=== PATIENT | male | born 1955 | race Caucasian/White ===

== ENCOUNTER 2018-11-02 09:18 | Inpatient (IN) | payer MEDICARE, OTHER ==
[~2018-11-02] VITALS: Ht 167.6 cm; Wt 61.2 kg
[2018-11-02] MEDS ORDERED: METOCLOPRAMIDE HCL 10 MG/2 ML VIAL IV ONE (09:30)
[2018-11-02] MEDS ORDERED: KETOROLAC TROMETHAMINE 15 MG INJ IV ONE (09:30)
[2018-11-02] MEDS ORDERED: IV NORMAL SALINE 1000 ML BAG IV ONE ×2 (09:30→11:45)
[2018-11-02] MEDS ORDERED: SWABABLE VALVE TRANSFER SET EA MC ONE (09:39)
[2018-11-02] MEDS ORDERED: IOHEXOL 300MG/ML 100 ML INFUS..BTL ONE (09:39)
[2018-11-02] MEDS ORDERED: IV NORMAL SALINE 250 ML IV ONE (09:39)
[2018-11-02 09:50] LABS: BASOPHILS # (AUTO) 0.1 K/uL (0.0-8.0); BASOPHILS % (AUTO) 0.8 % (0.0-2.0); EOSINOPHILS % (AUTO) 0.1 % (0.0-7.0); HEMATOCRIT 42.5 % (36.7-47.1); HEMOGLOBIN 14.3 g/dL (12.5-16.3); LYMPHOCYTES % (AUTO) 12.1 % (20.5-51.5); MEAN CORPUSCULAR HGB CONC 34 g/dL (32.5-36.3); MEAN CORPUSCULAR VOLUME 89.2 fL (73.0-96.2); MONOCYTES # (AUTO) 0.3 K/uL (2.0-10.0); MONOCYTES % (AUTO) 3.9 % (0.0-11.0); NEUTROPHILS # (AUTO) 7.1 K/uL (1.8-8.9); NEUTROPHILS % (AUTO) 83.1 % (38.5-71.5); PLATELET COUNT (AUTO) 214 K/uL (152-348); RED BLOOD CELL COUNT(AUTO) 4.77 MIL/uL (4.06-5.63); WHITE BLOOD COUNT (AUTO) 8.5 K/uL (3.6-10.2)
[2018-11-02] MEDS ORDERED: KETOROLAC TROMETHAMINE 15 MG INJ ONE (09:54)
[2018-11-02] MEDS ORDERED: METOCLOPRAMIDE HCL 10 MG/2 ML VIAL ONE (09:54)
[2018-11-02 09:56] LABS: CREATININE 0.9 mg/dL (0.6-1.3); POTASSIUM 3.8 mmol/L (3.5-5.1)
[2018-11-02 10:02] LABS: BILIRUBIN,DIRECT 0.2 mg/dL (0.0-0.2); BILIRUBIN,TOTAL 0.5 mg/dL (0.2-1.0); TOTAL PROTEIN, SERUM 7.1 g/dL (6.4-8.2)
[2018-11-02 10:34] LABS: *BILIRUBIN,URIN NEGATIVE (NEGATIVE); *CLARITY,URINE CLEAR (CLEAR); *COLOR,URINE YELLOW (YELLOW); *KETONES,URINE 1+ (NEGATIVE); *UROBILINOGEN,URINE 0.2 E.U./dl (NORMAL); LEUKOCYTE ESTERASE ,URINE NEGATIVE (NEGATIVE); NITRITE, URINE NEGATIVE (NEGATIVE); UGLUCOSE NEGATIVE (NEGATIVE)
[2018-11-02 10:43] LABS: *BLOOD, URINE TRACE (NEGATIVE)
[2018-11-02 10:46] LABS: BACTERIA,URINE NONE SEEN /HPF (NONE SEEN); WBC,URINE 0-3 /HPF (0-3)
[2018-11-02 10:47] LABS: MUCUS,URINE MODERATE /LPF (0-FEW); SQUAMOUS EPITHELIAL CELL,UR FEW /HPF (NONE SEEN)
[2018-11-02] MEDS ORDERED: ONDANSETRON 4 MG/2 ML VIAL ONE ×2 (11:39→13:01)
[2018-11-02] MEDS ORDERED: MORPHINE SULFATE 4 MG/1 ML DISP.SYRIN ONE (11:39)
[2018-11-02] MEDS ORDERED: MORPHINE SULFATE 4 MG/1 ML DISP.SYRIN IV ONE (11:45)
[2018-11-02] MEDS ORDERED: ONDANSETRON IV *ER 4 MG/2 ML VIAL IV ONE ×2 (11:45→13:00)
[2018-11-02 13:53] VITALS: BP 172/71
[2018-11-02] MEDS ORDERED: IV NS 1000 ML 1,000 ML IV PRN (14:09)
[2018-11-02] MEDS ORDERED: FLEET ENEMA 133 ML BOTTLE RC ONE (15:15)
[2018-11-02] MEDS ORDERED: GOLYTELY 4000 ML BOTTLE PO ONE (15:15)
[2018-11-02] MEDS ORDERED: MAGNESIUM CITRATE 296 ML BOTTLE PO ONE (15:15)
[2018-11-02] MEDS: ONDANSETRON 4 MG/2 ML VIAL IV PRN ×2 (15:25→21:45)
[2018-11-02] MEDS: METOCLOPRAMIDE HCL 10 MG/2 ML VIAL IV SCH (18:11)
[2018-11-02] MEDS: MORPHINE SULFATE 2 MG/1 ML DISP.SYRIN IV PRN ×2 (18:19→21:41)
[2018-11-02 20:00] VITALS: BP 147/73
[2018-11-03] VITALS: BP 123/63
[2018-11-03] MEDS: MORPHINE SULFATE 2 MG/1 ML DISP.SYRIN IV PRN ×3 (02:58→20:17)
[2018-11-03 04:00] VITALS: BP 125/74
[2018-11-03] MEDS: METOCLOPRAMIDE HCL 10 MG/2 ML VIAL IV SCH ×4 (05:08→17:06)
[2018-11-03] MEDS: ONDANSETRON 4 MG/2 ML VIAL IV PRN (05:46)
[2018-11-03 06:50] LABS: BASOPHILS # (AUTO) 0.1 K/uL (0.0-8.0); BASOPHILS % (AUTO) 0.5 % (0.0-2.0); HEMATOCRIT 42.7 % (36.7-47.1); HEMOGLOBIN 14.4 g/dL (12.5-16.3); LYMPHOCYTES % (AUTO) 9.8 % (20.5-51.5); MEAN CORPUSCULAR HEMOGLOBIN 29.9 uug (23.8-33.4); MEAN CORPUSCULAR HGB CONC 34 g/dL (32.5-36.3); MEAN CORPUSCULAR VOLUME 88.9 fL (73.0-96.2); MONOCYTES # (AUTO) 0.5 K/uL (2.0-10.0); MONOCYTES % (AUTO) 4.9 % (0.0-11.0); NEUTROPHILS # (AUTO) 9.1 K/uL (1.8-8.9); NEUTROPHILS % (AUTO) 84.8 % (38.5-71.5); PLATELET COUNT (AUTO) 227 K/uL (152-348); RED BLOOD CELL COUNT(AUTO) 4.81 MIL/uL (4.06-5.63); WHITE BLOOD COUNT (AUTO) 10.7 K/uL (3.6-10.2)
[2018-11-03 07:03] LABS: CREATININE 0.9 mg/dL (0.6-1.3); MAGNESIUM 1.6 mg/dL (1.8-2.4); PHOSPHOROUS 2.9 mg/dL (2.5-4.9); POTASSIUM 3.5 mmol/L (3.5-5.1); THYROID STIMULATING HORMONE 0.426 mIU/mL (0.358-3.740)
[2018-11-03] MEDS ORDERED: FLEET ENEMA 133 ML BOTTLE RC STA (07:30)
[2018-11-03] MEDS: PANTOPRAZOLE SODIUM 40 MG VIAL IV SCH (08:06)
[2018-11-03] MEDS ORDERED: PHENYLEPHRINE 10 MG/1 ML VIAL IV ONE (10:26)
[2018-11-03] MEDS ORDERED: IRR STERIL WATER FOR IRR 1000 ML BOTTLE IR ONE (10:26)
[2018-11-03] MEDS ORDERED: PROPOFOL 200 MG/20 ML BOTTLE IV ONE (10:26)
[2018-11-03] MEDS ORDERED: SUCRALFATE 1 G/10 ML LIQUID UDC PO SCH (11:30)
[2018-11-03] MEDS: SUCRALFATE 1 G/10 ML LIQUID UDC PO SCH ×3 (12:20→23:59)
[2018-11-03] MEDS: MAGNESIUM SULFATE/D5W 100 ML IV SCH ×2 (12:21→12:46)
[2018-11-03] MEDS ORDERED: IV D5/ 0.9% NACL 1,000 ML IV PRN (16:15)
[2018-11-03 16:20] VITALS: BP 144/76
[2018-11-03 20:00] VITALS: BP 158/84
[2018-11-03] MEDS ORDERED: TEMAZEPAM 7.5 MG CAPSULE PO PRN (20:30)
[2018-11-03] MEDS: PIPERACILLIN/TAZOBACTAM/D5W 3.375 G in PREMIXED 1 EACH IV SCH (21:14)
[2018-11-03] MEDS ORDERED: PIPERACILLIN/TAZOBACTAM/D5W 3.375 G in PREMIXED 1 EACH IV SCH (22:00)
[2018-11-04] MEDS: METOCLOPRAMIDE HCL 10 MG/2 ML VIAL IV SCH ×3 (00:16→11:46)
[2018-11-04] MEDS: MORPHINE SULFATE 2 MG/1 ML DISP.SYRIN IV PRN (01:10)
[2018-11-04 04:00] VITALS: BP 128/87
[2018-11-04] MEDS: PIPERACILLIN/TAZOBACTAM/D5W 3.375 G in PREMIXED 1 EACH IV SCH ×2 (06:09→13:23)
[2018-11-04] MEDS: SUCRALFATE 1 G/10 ML LIQUID UDC PO SCH ×2 (06:30→11:46)
[2018-11-04 06:41] LABS: BASOPHILS # (AUTO) 0.1 K/uL (0.0-8.0); BASOPHILS % (AUTO) 1.1 % (0.0-2.0); EOSINOPHILS % (AUTO) 0.3 % (0.0-7.0); HEMATOCRIT 42.5 % (36.7-47.1); HEMOGLOBIN 14.4 g/dL (12.5-16.3); LYMPHOCYTES # (AUTO) 1.7 K/uL (20.0-40.0); LYMPHOCYTES % (AUTO) 18.7 % (20.5-51.5); MEAN CORPUSCULAR HEMOGLOBIN 30.1 uug (23.8-33.4); MEAN CORPUSCULAR HGB CONC 34 g/dL (32.5-36.3); MEAN CORPUSCULAR VOLUME 88.8 fL (73.0-96.2); MONOCYTES # (AUTO) 0.7 K/uL (2.0-10.0); MONOCYTES % (AUTO) 7.7 % (0.0-11.0); NEUTROPHILS # (AUTO) 6.4 K/uL (1.8-8.9); NEUTROPHILS % (AUTO) 72.2 % (38.5-71.5); PLATELET COUNT (AUTO) 222 K/uL (152-348); RED BLOOD CELL COUNT(AUTO) 4.78 MIL/uL (4.06-5.63); WHITE BLOOD COUNT (AUTO) 8.8 K/uL (3.6-10.2)
[2018-11-04 07:02] LABS: BILIRUBIN,TOTAL 0.8 mg/dL (0.2-1.0); PHOSPHOROUS 2.6 mg/dL (2.5-4.9); POTASSIUM 3.5 mmol/L (3.5-5.1); TOTAL PROTEIN, SERUM 6.5 g/dL (6.4-8.2)
[2018-11-04] MEDS: PANTOPRAZOLE SODIUM 40 MG VIAL IV SCH (08:22)
[2018-11-04] MEDS ORDERED: FLUTICASONE/VILANTEROL 1 EACH BLST.W.DEV INH SCH (09:15)
[2018-11-04] MEDS ORDERED: NICOTINE 14 MG/24HR PATCH TD SCH (09:15)
[2018-11-04] MEDS ORDERED: ALBUTEROL SULFATE 2.5 MG/3 ML NEBU NEB PRN (09:15)
[2018-11-04] MEDS ORDERED: IPRATROPIUM BROMIDE 0.5 MG/2.5 ML NEBU NEB PRN (09:15)
[2018-11-04 11:40] VITALS: BP 134/68
[2018-11-04] MEDS ORDERED: PANT40TA2 PO (15:26)
[2018-11-04] MEDS ORDERED: ATOR10TA PO (15:26)
[2018-11-04] MEDS ORDERED: METR500T PO (15:26)
[2018-11-04] MEDS ORDERED: SUCR1ORA PO (15:26)
[2018-11-04] MEDS ORDERED: FLUT1BLS INH (15:26)
[2018-11-04] MEDS ORDERED: ALBU8.5H8 INH (15:26)
[2018-11-04] MEDS ORDERED: LEVO500T2 PO (15:26)
[2018-11-04 16:26] VITALS: BP 154/80
[2018-11-04] MEDS ORDERED: ATORVASTATIN 10 MG TABLET PO SCH (21:00)
== END 2018-11-04 16:35 | disposition home or self-care (01) | DRG 372 ==
LOC: ER 09:18 → TELE3 13:28 → MEDSURG3 11-03 14:38
PROVIDERS: ATTEND Internal Medicine
PROC: 0DB98ZX Excision of Duodenum, Via Natural or Artificial Opening Endoscopic, Diagnostic (ICD-10-PCS; principal; 2018-11-03)
PROC: 0DB68ZX Excision of Stomach, Via Natural or Artificial Opening Endoscopic, Diagnostic (ICD-10-PCS; 2018-11-03)
PROC: 0DBP8ZX Excision of Rectum, Via Natural or Artificial Opening Endoscopic, Diagnostic (ICD-10-PCS; 2018-11-03)
DX: A04.9 Bacterial intestinal infection, unspecified (principal); J44.1 Chronic obstructive pulmonary disease with (acute) exacerbation; K62.89 Other specified diseases of anus and rectum; F17.210 Nicotine dependence, cigarettes, uncomplicated; K29.80 Duodenitis without bleeding; E83.42 Hypomagnesemia; E78.5 Hyperlipidemia, unspecified; R31.29 Other microscopic hematuria; K29.70 Gastritis, unspecified, without bleeding; I70.0 Atherosclerosis of aorta; R94.31 Abnormal electrocardiogram [ECG] [EKG]; R53.1 Weakness
CPT/HCPCS: 36415; 70030-TC; 71045; 82378; 83605; 83690; 83735; 84100; 84153; 84443; 85025; 85730; 87040; 88342; 93005; 93307; 97112; 97116; A4217; A4663; C9113; G0378; J1885; J2270; J2370; J2405; J2543; J2765; J3475; J3490; J7030; J7042; J7050; Q9967